=== PATIENT | female | born 1940 | race Caucasian/White ===

== ENCOUNTER → 2016-08-27 | Outpatient (CLI) | payer MEDICARE, OTHER ==
[~2016-08-27] MED LIST: ATIVAN 0.5MG0.5 MG PO; BACTRIM DS1 TAB PO; NORCO 5-325 MG1 TAB PO; PERCOCET 5-3251 EACH PO; PROZAC20 MG PO; ZOCOR20 MG PO
== END | disposition disaster alternative care site (69) ==
LOC: GKIC 11:24
DX: C50.412 Malignant neoplasm of upper-outer quadrant of left female breast (principal); D70.1 Agranulocytosis secondary to cancer chemotherapy; C78.1 Secondary malignant neoplasm of mediastinum; R19.7 Diarrhea, unspecified
CPT/HCPCS: A9552